=== PATIENT | male | born 1975 | race Asian ===

== ENCOUNTER 2023-11-20 15:49 | Emergency (ER) | payer BC ==
[~2023-11-20] VITALS: Ht 177.8 cm; Wt 78.5 kg
[2023-11-20 16:00] VITALS: BP_SYST 126; PULSE 86; RESP 19; TEMP 98.2; O2SAT 97
[2023-11-20 16:33] LABS: BASOPHILS # (AUTO) 0.1 K/uL (0.0-0.2); BASOPHILS % (AUTO) 0.5 % (0.0-2.0); EOSINOPHILS # (AUTO) 0.3 K/uL (0.0-0.4); EOSINOPHILS % (AUTO) 2.4 % (0.0-4.0); HEMOGLOBIN 12.9 g/dL (14.0-18.0); LYMPHOCYTES # (AUTO) 1.7 K/uL (1.0-5.5); LYMPHOCYTES % (AUTO) 12.5 % (20.5-51.5); MEAN CORPUSCULAR HEMOGLOBIN 30 pg (27-31); MEAN CORPUSCULAR HGB CONC 34 % (32-36); MEAN CORPUSCULAR VOLUME 88 fL (79.0-98.0); MONOCYTES # (AUTO) 0.7 K/uL (0.0-1.0); MONOCYTES % (AUTO) 4.9 % (1.7-9.3); NEUTROPHILS # (AUTO) 10.9 K/uL (1.8-7.7); NEUTROPHILS % (AUTO) 79.7 % (40.0-70.0); PLATELET COUNT (AUTO) 368 K/uL (130-430); RED BLOOD CELL COUNT(AUTO) 4.31 MIL/uL (4.2-6.2); RED CELL DISTRIBUTION WIDTH 13.4 % (9.0-15.0); WHITE BLOOD COUNT (AUTO) 13.7 K/uL (4.8-10.8)
[2023-11-20 16:34] LABS: PROTHROMBIN TIME 10.1 SECS (9.5-12.5)
[2023-11-20 16:38] LABS: ALANINE AMINOTRANSFERASE 60 U/L (12-78); ALBUMIN 3.5 g/dL (3.4-4.8); ANION GAP 5 (5-15); ASPARTATE AMINOTRANSFERASE 103 U/L (10-37); CALCIUM 8.6 mg/dL (8.4-11.0); CARBON DIOXIDE 29 mmol/L (23-29); CHLORIDE 105 mmol/L (98-107); CREATININE 1.19 mg/dL (0.55-1.30); GFR AFRICAN AMERICAN 84 mL/min (>90); GFR NON AFRICAN-AMERICAN 70 mL/min (>90); GLUCOSE 140 mg/dL (74-106); SODIUM SERUM 139 mmol/L (136-145); TOTAL BILIRUBIN 0.8 mg/dL (0.0-1.0); TOTAL PROTEIN, SERUM 7.1 g/dL (6.4-8.3); UREA NITROGEN, BLOOD 13 mg/dL (8-21)
[2023-11-20] MEDS: KETOROLAC TROMETHAMINE 60 MG/2 ML VIAL IM ONE (16:41)
[2023-11-20 16:57] LABS: AMYLASE 79 U/L (0-100); BILIRUBIN,DIRECT 0.3 mg/dL (0.0-0.3); LIPASE 55 U/L (16-77)
[2023-11-20] MEDS ORDERED: HYDR-3917 PO (17:34)
[2023-11-20] MEDS ORDERED: IBUP-1971 PO (17:34)
[2023-11-20 17:41] VITALS: BP_SYST 126; PULSE 86; RESP 18; TEMP 97.2; O2SAT 97
== END 2023-11-20 17:42 | disposition home or self-care (01) ==
LOC: SED 15:49
DX: K80.50 Calculus of bile duct without cholangitis or cholecystitis without obstruction (principal); Z79.899 Other long term (current) drug therapy
CPT/HCPCS: 99285; 74176; 80076; 80048; 82150; 83690; 85025; 85610; 85730; 84484; 36415; 96372; 83605; 82397; J1885